=== PATIENT | female | born 1975 | race Caucasian/White ===

== ENCOUNTER 2017-07-07 08:11 | Inpatient (IN) | payer OTHER ==
[~2017-07-07 08:11] MED LIST: Penicillin G Potassium IV* 5,000,000 UNITS in NS 0.9% 100 ML* 100 ML IVPB ONE
[2017-07-07] MEDS ORDERED: Oxytocin in LR* 20 UNITS/1,000 ML BAG IVPB ONE (08:58)
[2017-07-07] MEDS ORDERED: Oxytocin in LR* 20 UNITS/1,000 ML BAG IVPB SCH ×2 (09:00→18:00)
[2017-07-07 09:21] LABS: Hematocrit 30 % (35-47); Hemoglobin 9.7 g/dl (12.0-16.0); Mean Corpuscular HGB Conc 33 g/dl (31-36); Mean Corpuscular Hemoglobin 27 pg (27-31); Mean Corpuscular Volume 83 fL (80-97); Mean Platelet Volume 9 um3 (7.4-10.4); Platelet Count 249 10^3/ul (150-450); Red Blood Count 3.59 10^6/ul (4.0-5.4); Red Cell Distribution Width 17 % (10.5-15); White Blood Count 9.2 10^3/ul (3.5-10.8)
--- NOTE | 2017-07-07 09:25 | HP ---
General Information - General Information Maternal Age: 42 Grav: 2 Para: 1 SAB: 0 IEA: 0 Estimated Due Date: 07/09/17 Determined By: Early Ultrasound - 10 week Maternal Blood Type and Rh: O Positive - Results this Serology/RPR Result: Non-Reactive Rubella Result: Immune HBsAg Result: Negative HIV Result: Negative GBS Culture Result: Positive - bacteriuria Past Medical History Delivery History: Hx Complicated Vaginal Delivery - Hx partially retained placenta with manual removal by Pertinent Past Medical History: See Records - Hx anxiety well controlled on Celexa Pertinent Past Surgical History: See Records - 2011 ACL repair, 2002 Cryosurgery cervix, 1996 breast biopsy Pertinent Family History: See Records - Father due to CVA. Mother has hx epilepsy - Antepartal Records Antepartal Records: Reviewed, Uncomplicated - AMA age 42 at [facility] Review of Systems Constitutional: Comfortable CV Complaint: No Respiratory: Shortness of Breath: Yes - s/p treatment for URI. Using albuterol PRN Gastrointestinal: No Nausea/Vomiting Genitourinary: No Dysuria, No Bleeding, No Leaking Fluid Musculoskeletal: No Complaint Neurological: No Headache Movement: Normal Exam Allergies/Adverse Reactions: Allergies nitrous oxide Allergy (Verified 07/07/17 09:01) See Comment HYPOTENSION, IRREGULAR HEARTBEAT BP 117/69 HR 94 RR 18 T 98.6 O2 sat 97% - Measurements Height: 5 ft 4.5 in Weight: 169 lb Body Mass Index (BMI): 28.5 Pre- Weight: 158 lb - Exam Abdomen: No Upper Quadrant Pain Breast: Breast Exam Deferred CVA: No CVA Tenderness Extremities: No Edema Heart: Normal Rhythm/Heart Sounds HEENT: No Significant Findings Rectal: Rectal Exam Deferred Reflexes: DTR 2+ Thyroid: No Thyromegaly - Abdominal Exam Abdomen Exam: Non-Tender - Membranes Membrane Status: Intact - Ultrasound/Biophysical Profile Ultrasound Status: Not Done EFM Findings - External Monitor Findings Baseline Heart Rate: 140 External Monitor Findings: Accelerations Present, No Pattern of Variable or Late Decelerations, Variability Moderate External Monitor Findings Comment: No evidence of metabolic acidemia Contractions: Irregular, Mild Assessment/Plan - Reason for Visit Reason for Visit: Term IOL at 39-5/7 for AMA age 42 - Obstetrical Risk Factors Obstetrical Risk Factors: GBS Positive - Plan Plan: Induction - Date/Time of Admission Date of Admission: 07/07/17 Time of Admission: 08:48
[2017-07-07 09:58] LABS: ABS Basophils 0 10^3/ul (0-0.2); ABS Eosinophils 0.1 10^3/ul (0-0.6); ABS Lymphocytes 1.5 10^3/ul (1.0-4.8); ABS Monocytes 0.5 10^3/ul (0-0.8); ABS Neutrophils 7.1 10^3/ul (1.5-7.7); ABS Nucleated RBC 0 10^3/ul; Eosinophil % 1.2 % (0-6); Lymphocyte % 16.3 % (25-47); Nucleated Red Blood Cells % 0.1
[2017-07-07] MEDS ORDERED: Penicillin G Potassium IV* 2,500,000 UNITS in NS 0.9% 100 ML* 100 ML IVPB SCH (12:00)
[2017-07-07] MEDS ORDERED: Albuterol HFA INHALER* 8 gm MDI INH PRN (15:15)
[2017-07-07] MEDS ORDERED: OBEPIDURAL* 0 ML EPIDURAL ONE (16:31)
[2017-07-07] MEDS ORDERED: Lidocaine 1% MPF* 2 ML VIAL ONE (17:26)
[2017-07-07] MEDS ORDERED: Acetaminophen TAB* 325 MG PO PRN (17:27)
[2017-07-07] MEDS ORDERED: Witch Hazel PAD* JAR TOPICAL PRN (17:27)
[2017-07-07] MEDS ORDERED: Dibucaine 1% 28.35 GM TUBE PR PRN (17:27)
[2017-07-07] MEDS ORDERED: Glycerin ADULT SUPP PR PRN (17:27)
[2017-07-07] MEDS ORDERED: Simethicone TAB* 80 MG TAB.CHEW PO SCH (17:30)
[2017-07-07] MEDS: Ibuprofen TAB* 600 MG PO PRN (17:44)
[2017-07-07] MEDS ORDERED: Citalopram TAB* 20 MG PO SCH (20:00)
[2017-07-07] MEDS: Docusate CAP* 100 MG PO SCH (20:44)
[2017-07-07] MEDS ORDERED: PTO: Fluticasone HFA 110 mcg(NF) MDI INH SCH (21:00)
[2017-07-07] MEDS: Citalopram TAB* 40 MG PO SCH (21:48)
[2017-07-08] MEDS: Ibuprofen TAB* 600 MG PO PRN ×3 (00:09→13:35)
[2017-07-08 06:25] LABS: ABS Basophils 0.1 10^3/ul (0-0.2); ABS Eosinophils 0.1 10^3/ul (0-0.6); ABS Lymphocytes 1.8 10^3/ul (1.0-4.8); ABS Monocytes 0.5 10^3/ul (0-0.8); ABS Neutrophils 8.8 10^3/ul (1.5-7.7); ABS Nucleated RBC 0 10^3/ul; Hematocrit 23 % (35-47); Hemoglobin 7.6 g/dl (12.0-16.0); Lymphocyte % 16.2 % (25-47); Mean Corpuscular HGB Conc 33 g/dl (31-36); Mean Corpuscular Hemoglobin 27 pg (27-31); Mean Corpuscular Volume 83 fL (80-97); Mean Platelet Volume 9 um3 (7.4-10.4); Nucleated Red Blood Cells % 0.1; Platelet Count 191 10^3/ul (150-450); Red Blood Count 2.81 10^6/ul (4.0-5.4); Red Cell Distribution Width 17 % (10.5-15); White Blood Count 11.3 10^3/ul (3.5-10.8)
[2017-07-08] MEDS: Ferrous Gluconate TAB* 324 MG TAB PO SCH ×2 (09:15→20:18)
[2017-07-08] MEDS: Docusate CAP* 100 MG PO SCH ×3 (09:15→20:18)
[2017-07-08] MEDS: Citalopram TAB* 40 MG PO SCH (20:18)
[2017-07-08 20:20] VITALS: BP 102/47
[2017-07-09] MEDS: Ferrous Gluconate TAB* 324 MG TAB PO SCH (08:45)
[2017-07-09] MEDS: Docusate CAP* 100 MG PO SCH (08:45)
[2017-07-09] MEDS: Ibuprofen TAB* 600 MG PO PRN (09:18)
== END 2017-07-09 11:49 | disposition home or self-care (01) | DRG 560 ==
LOC: MCHOBOUT 08:11 → MCHOB 08:48
PROVIDERS: ADMIT Midwife; ATTEND Midwife
PROC: 3E033VJ Introduction of Other Hormone into Peripheral Vein, Percutaneous Approach (ICD-10-PCS; principal; 2017-07-07)
PROC: 10907ZC Drainage of Amniotic Fluid, Therapeutic from Products of Conception, Via Natural or Artificial Opening (ICD-10-PCS; 2017-07-07)
PROC: 10E0XZZ Delivery of Products of Conception, External Approach (ICD-10-PCS; 2017-07-07)
PROC: 4A1HXCZ Monitoring of Products of Conception, Cardiac Rate, External Approach (ICD-10-PCS; 2017-07-07)
PROC: 0KQM0ZZ Repair Perineum Muscle, Open Approach (ICD-10-PCS; 2017-07-07)
DX: O99.344 Other mental disorders complicating childbirth (principal); F41.9 Anxiety disorder, unspecified; O99.824 Streptococcus B carrier state complicating childbirth; Z3A.39 39 weeks gestation of pregnancy; Z88.4 Allergy status to anesthetic agent; O70.1 Second degree perineal laceration during delivery; O90.81 Anemia of the puerperium; Z88.8 Allergy status to other drugs, medicaments and biological substances; Z37.0 Single live birth
CPT/HCPCS: 36415; 85025; 86850; 86900; 86901; A9270-GY; J2540

== ENCOUNTER 2018-04-24 06:32 | Day surgery (SDC) | payer BC, OTHER ==
[~2018-04-24 06:32] MED LIST changes: +Buffered Lidocaine 0.9% SYRIN* 5 ML/SYR SYRINGE INTRADERM ONE; +Dexamethasone IV* 4 MG/ML 1 ML (4 MG) IV SLOW PU ONE; +Famotidine IV* 10 MG/ML 2 ML (20 mg) IV ONE; +Lactated Ringers 1000 ML Bag* 1,000 ML IV SCH; -Penicillin G Potassium IV* 5,000,000 UNITS in NS 0.9% 100 ML* 100 ML IVPB ONE
[2018-04-24] MEDS ORDERED: Dexamethasone IV* 4 MG/ML 1 ML (4 MG) ONE (07:10)
[2018-04-24] MEDS ORDERED: Famotidine IV* 10 MG/ML 2 ML (20 mg) ONE (07:10)
[2018-04-24 07:43] LABS: Hematocrit 38 % (35-47); Hemoglobin 12.4 g/dl (12.0-16.0); Mean Corpuscular HGB Conc 32 g/dl (31-36); Mean Corpuscular Hemoglobin 28 pg (27-31); Mean Corpuscular Volume 86 fL (80-97); Platelet Count 208 10^3/ul (150-450); Red Blood Count 4.46 10^6/ul (4.00-5.40); Red Cell Distribution Width 16 % (10.5-15); White Blood Count 7.2 10^3/ul (3.5-10.8)
[2018-04-24] MEDS ORDERED: fentaNYL* 50 MCG/ML 2 ML VIAL (100 MCG VIAL) ONE ×2 (08:04→09:06)
[2018-04-24] MEDS ORDERED: Midazolam* 1 MG/ML 2 ML VIAL (2 MG) ONE (08:04)
[2018-04-24] MEDS ORDERED: Succinylcholine* 20 MG/ML 10 ML VIAL ONE (08:04)
[2018-04-24] MEDS ORDERED: Propofol* 10 MG/ML 20 ML BTL ONE (08:04)
[2018-04-24] MEDS ORDERED: Lidocaine 2% PF * 5 ML VIAL ONE (08:04)
[2018-04-24] MEDS ORDERED: Bupivacaine 0.25% SDV PF* 10 ML VIAL INJ ONE (08:15)
[2018-04-24] MEDS ORDERED: oxyCODONE/Acetamin 5/325 MG* TAB PO PRN (08:25)
[2018-04-24] MEDS ORDERED: Naloxone* 0.4 MG/ML 1 ML VIAL IV PRN (08:25)
[2018-04-24] MEDS ORDERED: fentaNYL* 50 MCG/ML 2 ML VIAL (100 MCG VIAL) IV PRN (08:25)
[2018-04-24] MEDS ORDERED: DiMENhydriNATE IV* 50 MG/ML VIAL IV PUSH PRN (08:25)
[2018-04-24] MEDS ORDERED: HYDROcodone/ACETAMIN 5-325 MG* 1 TAB PO PRN (08:25)
[2018-04-24] MEDS ORDERED: Ketorolac INJ* 30 MG/ML 1 ML VIAL ONE (08:45)
[2018-04-24] MEDS ORDERED: Ondansetron INJ* 2 MG/ML VIAL ONE (08:58)
[2018-04-24] MEDS ORDERED: EPHEDrine (Pressors)* 50 MG/ML VIAL ONE (09:00)
[2018-04-24 11:07] VITALS: BP 109/59
--- NOTE | 2018-04-24 14:03 | OP ---
DATE OF OPERATION: 04/24/18 - [facility] DATE OF : 77 SURGEON: Kvng Woodruff MD. ANESTHESIOLOGIST: Dr. Sim. ANESTHESIA: General. PRE-OP DIAGNOSIS: Satisfied parity. POST-OP DIAGNOSIS: Satisfied parity. OPERATIVE PROCEDURE: Laparoscopic bilateral tubal ligation with Filshie clips. ESTIMATED BLOOD LOSS: Minimal. URINE OUTPUT: 200 cc. IV FLUIDS: 1200 cc lactated Ringer's. MATERIALS TO LAB: None. INDICATIONS: This patient was a 42-year-old 2, para 2, who presented to the office desiring permanent sterilization. The patient was made aware of her other options including half-way reversible contraception but she desired to have permanent sterilization done. She was extensively counseled for a laparoscopic bilateral tubal ligation and a consent was signed. FINDINGS: Normal appearing uterus, fallopian tubes and remainder of her pelvis. Appendix and liver also appeared normal. COMPLICATIONS: None. DESCRIPTION OF PROCEDURE: The risks, benefits, and alternatives were described to the patient, and informed consent was obtained. The patient was taken to the operating room with IV running where general anesthesia was induced and found to be adequate. The patient was prepped and draped in normal-sterile fashion in the low lithotomy position and Jimy stirrups. A time-out was performed. The bladder was emptied. A bivalve speculum was placed in the vagina and a Hulka tenaculum was placed through the cervix into the uterus. The speculum was then removed. Attention was then turned to the abdomen. 0.25% Marcaine was then injected into the skin of the umbilicus as well as 2-cm above the pubic symphysis. A 5 mm skin incision was made with a scalpel in the umbilicus. An [place] blade with trocar was then inserted through the incision and into the peritoneal cavity without difficulty. The skin was elevated using penetrating towel clamps. Once the trocar was in the abdominal cavity, the abdomen was insufflated with carbon dioxide gas to a maximum pressure of 15 mmHg. Using the camera, the area below the trocar placement was carefully inspected and there was no evidence of trauma or bleeding. The patient was placed in Trendelenburg position. A second incision about 8 mm in length was placed 2 cm above the pubic symphysis in a transverse fashion. An 8- mm blunt trocar was also placed through this incision and into the abdominal cavity without difficulty. Using the Hulka tenaculum for manipulation, the uterus was elevated and well visualized. The structures appeared normal. Filshie clips were prepared. A Filshie clip was then placed on the patient's right fallopian tube in the mid isthmic portion without difficulty. The same was then performed on the patient's left side, again without difficulty and with excellent hemostasis. The case was then completed. The trocars were removed from the abdomen and the gas was allowed to escape. The skin was reapproximated using 4-0 Monocryl and a subcuticular stitch, and the incisions were then overlaid with Dermabond skin adhesive. The tenaculum was then removed from the cervix as well, and there was only light bleeding from the vagina at that time. The patient was returned to the supine position and allowed to awaken. The patient tolerated the procedure well. Sponge, lap, and needle counts were correct x2. [id number] #: [id number] MTDD
== END 2018-04-24 11:09 | disposition home or self-care (01) ==
LOC: OR 06:32
PROVIDERS: ATTEND Obstetrics & Gynecology
DX: Z30.2 Encounter for sterilization (principal); D64.9 Anemia, unspecified; F41.9 Anxiety disorder, unspecified
CPT/HCPCS: 36415; 81025; 85027; 86850; 86900; 86901; C1776; J0330; J1100; J1885; J2250; J2405; J2704; J3010; J3490